=== PATIENT | female | born 1970 | race Caucasian/White ===

== ENCOUNTER 2017-03-30 00:52 | Emergency (ER) | payer OTHER ==
[~2017-03-30] VITALS: Ht 177.8 cm; Wt 81.7 kg
[~2017-03-30 00:52] MED LIST: NOHOMEMEDS
[2017-03-30 01:47] LABS: HEMATOCRIT 40.8 % (36.0-46.0); MCH 31.4 PG (29.0-34.0); MCHC 33.3 G/DL (30.0-36.0); MCV 94.2 FL (83-99); MEAN PLAT.VOLUME 9.5 uM^3 (9.5-12.4); PLATELET COUNT 254 K/uL (156-360); RBC DIS.WIDTH-CV 12.5 % (11.8-14.6); RBC DIS.WIDTH-SD 43.5 % (39-53); RED BLOOD COUNT 4.33 M/uL (3.80-5.20); WHITE BLOOD COUNT 7.5 K/uL (4.1-10.2)
[2017-03-30 01:55] LABS: CHLORIDE 103 mEq/L (99-109); POTASSIUM 3.8 mEq/L (3.7-5.4); SODIUM 138 mEq/L (136-147)
[2017-03-30 01:58] LABS: GLUCOSE 86 mg/dL (70-99)
[2017-03-30 01:59] LABS: ANION GAP 11 MEQ/L (2-14); TOTAL BILIRUBIN 0.5 mg/dL (0.0-1.0)
[2017-03-30 02:01] LABS: ALKALINE PHOSPHATASE 67 IU/L (3-129); GFR ESTIMATE (CALCULATED) > 59 mL/min/
[2017-03-30 02:02] LABS: UREA NITROGEN (BUN) 9 mg/dL (9-23)
[2017-03-30 02:10] LABS: QUANTITATIVE HCG < 4.0 MIU/ML
[2017-03-30 02:39] LABS: ADD MIUA? NO; BILIRUBIN NEGATIVE; BLOOD NEGATIVE; COLOR STRAW ((YELLOW)); GLUCOSE (STRIP) NEGATIVE; KETONES NEGATIVE; LEUKOCYTES NEGATIVE; NITRITE NEGATIVE; PROTEIN (STRIP) NEGATIVE; SPECIFIC GRAVITY 1.004 (1.000-1.030); UCUL ADDED? NO; UROBILINOGEN 0.2 MG/DL (0.2-1.0)
[2017-03-30] MEDS ORDERED: NAPROXEN500 MG PO (03:02)
[2017-03-30] MEDS ORDERED: ULTRAM50 MG PO (03:02)
[2017-03-30] MEDS ORDERED: SKELAXIN800 MG PO (03:02)
[2017-03-30 03:16] VITALS: BP 132/108
== END 2017-03-30 03:17 | disposition home or self-care (01) ==
LOC: EME 00:52
PROVIDERS: Physician Assistant
DX: M54.5 Low back pain (principal); F17.200 Nicotine dependence, unspecified, uncomplicated
CPT/HCPCS: 74176; 80053; 81003; 84702; 85027; 99281; 99284; J8540